=== PATIENT | female | born 1975 | race Caucasian/White ===

== ENCOUNTER 2023-07-17 15:30 | Outpatient (CLI) | payer OTHER, SELFPAY | END 2023-07-17 15:31 | disposition home or self-care (01) | LOC: NFLDREF 07-21 18:34 | PROVIDERS: Visit Provider Nurse Practitioner Family | DX: R35.0 Frequency of micturition (principal); N30.00 Acute cystitis without hematuria; N30.01 Acute cystitis with hematuria | CPT/HCPCS: 87086; 87186 ==